=== PATIENT | male | born 1955 | race Caucasian/White ===

== ENCOUNTER 2018-10-18 13:18 | Emergency (ER) | payer OTHER, MEDICARE ==
[~2018-10-18] VITALS: Ht 170.2 cm; Wt 79.4 kg
[~2018-10-18 13:18] MED LIST: GENTAMICIN SU3 MG/ML OPHTHALMIC; LISINOPRIL20 MG PO; NORCO 10-325 T1 EACH PO; SIMVASTATIN40 MG PO
[2018-10-18 13:46] LABS: ABSOLUTE EOSINOPHILS 0.2 thou/uL (0.0-0.7); ABSOLUTE LYMPHOCYTES 2.3 thou/uL (0.8-5.3); ABSOLUTE MONOCYTES 0.8 thou/uL (0.0-1.2); ABSOLUTE NEUTROPHILS 5.1 thou/uL (1.6-8.1); BASOPHILS 0.4 %; EOSINOPHILS 2.7 %; HEMATOCRIT 44.7 % (42.0-52.0); HEMOGLOBIN 15.4 gm/dL (14.0-18.0); LYMPHOCYTES 27.6 %; MCH 31.6 pg (26.0-34.0); MCHC 34.4 g/dL (28.0-37.0); MCV 91.8 fL (80.0-100.0); MONOCYTES 9.3 %; NUCLEATED RBCS 0 /100WBC; PLATELET COUNT* 180 thou/uL (150-400); RBC 4.86 mil/uL (4.50-6.00); RDW-CV 13.7 % (10.5-14.5); WBC 8.4 thou/uL (4.0-11.0)
[2018-10-18 13:52] LABS: PROTIME 10.6 Seconds (9.20-11.50)
[2018-10-18 14:15] LABS: CALCIUM 8.7 mg/dL (8.5-10.1); CREATININE 1.1 mg/dL (0.6-1.3); POTASSIUM 3.5 mmol/L (3.5-5.1)
[2018-10-18 14:26] LABS: ALBUMIN 4.3 g/dL (3.4-5.0); TOTAL BILIRUBIN 0.7 mg/dL (<0.1-1.0); TOTAL PROTEIN 8.2 g/dL (6.4-8.2)
[2018-10-18] MEDS ORDERED: PERCOCET 5-3251 EACH PO (14:45)
[2018-10-18] MEDS ORDERED: FLEXERIL PO (14:45)
[2018-10-18] MEDS ORDERED: ZOFRAN ODT4 MG SUBLING (15:21)
[2018-10-18 15:32] VITALS: BP 125/80
== END 2018-10-18 15:33 | disposition home or self-care (01) ==
LOC: M.ERS 13:18
PROVIDERS: Family Medicine
DX: S80.02XA Contusion of left knee, initial encounter (principal); S70.02XA Contusion of left hip, initial encounter; I10 Essential (primary) hypertension; E78.00 Pure hypercholesterolemia, unspecified; Z98.890 Other specified postprocedural states; V49.49XA Driver injured in collision with other motor vehicles in traffic accident, initial encounter; Y92.89 Other specified places as the place of occurrence of the external cause; Y93.89 Activity, other specified; Y99.8 Other external cause status

== ENCOUNTER 2019-09-23 13:13 | Emergency (ER) | payer OTHER, MEDICARE ==
[~2019-09-23] VITALS: Ht 172.7 cm; Wt 90.7 kg
[~2019-09-23 13:13] MED LIST changes: +FLEXERIL PO; +PERCOCET 5-3251 EACH PO; +ZOFRAN ODT4 MG SUBLING
[2019-09-23] MEDS ORDERED: APAP W/CODEINE1 TA2 PO (14:32)
[2019-09-23] MEDS ORDERED: ONDANSETRON HCL4 M2 PO (14:32)
[2019-09-23 14:50] VITALS: BP 140/85
== END 2019-09-23 14:50 | disposition home or self-care (01) ==
LOC: M.ERS 13:13
DX: U07.1 COVID-19 (principal); I10 Essential (primary) hypertension; E78.00 Pure hypercholesterolemia, unspecified

== ENCOUNTER 2019-09-26 12:59 | Emergency (ER) | payer OTHER, MEDICARE ==
[~2019-09-26] VITALS: Ht 172.7 cm; Wt 83.9 kg
[~2019-09-26 12:59] MED LIST changes: +APAP W/CODEINE1 TA2 PO; +ONDANSETRON HCL4 M2 PO
[2019-09-26 13:26] LABS: ABSOLUTE LYMPHOCYTES 1.2 thou/uL (0.8-5.3); ABSOLUTE MONOCYTES 0.5 thou/uL (0.0-1.2); ABSOLUTE NEUTROPHILS 3.3 thou/uL (1.6-8.1); BASOPHILS 0.3 %; EOSINOPHILS 0.1 %; HEMATOCRIT 44.6 % (42.0-52.0); HEMOGLOBIN 15.5 gm/dL (14.0-18.0); LYMPHOCYTES 23.3 %; MCH 31.9 pg (26.0-34.0); MCHC 34.6 g/dL (28.0-37.0); MCV 92.2 fL (80.0-100.0); MONOCYTES 10.1 %; MPV 9.5 fl. (7.2-11.1); NUCLEATED RBCS 0 /100WBC; PLATELET COUNT* 132 thou/uL (150-400); POLYS 66.2 %; RBC 4.84 mil/uL (4.50-6.00); RDW-CV 13.2 % (10.5-14.5)
[2019-09-26 13:35] LABS: PROTIME 10.7 Seconds (9.20-11.50)
[2019-09-26 13:36] LABS: CALCIUM 8.7 mg/dL (8.5-10.1); CREATININE 1.2 mg/dL (0.6-1.3); POTASSIUM 4.1 mmol/L (3.5-5.1)
[2019-09-26 13:46] LABS: ALBUMIN 3.8 g/dL (3.4-5.0); TOTAL BILIRUBIN 0.7 mg/dL (<0.1-1.0); TOTAL PROTEIN 8.6 g/dL (6.4-8.2)
[2019-09-26] MEDS ORDERED: IBUPROFEN 600600 M1 PO (14:57)
[2019-09-26] MEDS ORDERED: ONDANSETRON ODT4 MG PO (14:57)
[2019-09-26 15:34] VITALS: BP 123/74
--- NOTE | 2019-09-26 16:33 | EKG ---
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
== END 2019-09-26 15:36 | disposition home or self-care (01) ==
LOC: M.ERS 12:59
PROVIDERS: Family Medicine
DX: U07.1 COVID-19 (principal); M54.5 Low back pain; I10 Essential (primary) hypertension; E78.00 Pure hypercholesterolemia, unspecified